=== PATIENT | male | born 1945 | race African-American/Black ===

== ENCOUNTER 2021-04-19 18:56 | Inpatient (IN) | payer MEDICARE, MEDICAID ==
[2021-04-19] VITALS (8 sets, daily range): BP systolic 103–167; BP diastolic 31–54
[~2021-04-19] VITALS: Ht 172.7 cm; Wt 65.5 kg
[2021-04-19] MEDS ORDERED: NICARDIPINE 40MG/200ML PREMIX 200 ML IV PRN (20:45)
[2021-04-19] MEDS ORDERED: HEPARIN 25,000 UNITS PREMIX 250 ML IV SCH (20:45)
[2021-04-19] MEDS ORDERED: ALPRAZOLAM 0.25 MG TABLET PO PRN (21:00)
[2021-04-19] MEDS ORDERED: LABETALOL HCL 200MG TABLET PO SCH (21:00)
[2021-04-19 21:43] LABS: BASOPHILS % 0.3 % (0.0-2.0); EOSINOPHILS % 1.9 % (0.0-5.0); HEMATOCRIT. 28.5 % (42.0-52.0); HEMOGLOBIN. 9.3 g/dL (14.0-18.0); INR 1.1; LYMPHOCYTES % 9.7 % (20.0-50.0); MEAN CORPUSCULAR HEMOGLOBIN 27.1 pg (28.0-32.0); MEAN CORPUSCULAR VOLUME 82.9 fL (80.0-94.0); MEAN PLATELET VOLUME 8.6 fl (7.4-10.4); MONOCYTES % 12.1 % (2.0-8.0); PARTIAL THROMBOPLASTIN TIME 29.4 sec (23.4-31.0); PLATELET 264 x1000/uL (130-400); PROTHROMBIN TIME 11.4 sec (9.6-11.0); RED BLOOD CELL COUNT 3.44 mill/uL (4.7-6.1); RED CELL DISTRIBUTION WIDTH 17.4 % (11.6-14.6)
[2021-04-19] MEDS: ATORVASTATIN CALCIUM 40MG TABLET PO SCH (21:45)
[2021-04-19 21:53] LABS: CHLORIDE 110 mEq/L (98-107)
[2021-04-19] MEDS ORDERED: HEPARIN BOLUS PRN aPTT <30 IV (22:15)
[2021-04-19] MEDS ORDERED: HEPARIN BOLUS PRN aPTT 30-44 IV (22:15)
[2021-04-19] MEDS ORDERED: HEPARIN 60 UNITS/KG BOLUS IV NR (22:15)
[2021-04-19] MEDS: HEPARIN 25,000 UNITS PREMIX 250 ML IV SCH (23:50)
[2021-04-20] VITALS (101 sets, daily range): BP systolic 96–203; BP diastolic 19–68
[2021-04-20] MEDS: HEPARIN 25,000 UNITS PREMIX 250 ML IV SCH (04:55)
[2021-04-20 07:12] LABS: BASOPHILS % 0.2 % (0.0-2.0); EOSINOPHILS % 3.1 % (0.0-5.0); HEMOGLOBIN. 9.3 g/dL (14.0-18.0); LYMPHOCYTES % 10.5 % (20.0-50.0); MEAN CORPUSCULAR HEMOGLOBIN 26.8 pg (28.0-32.0); MEAN CORPUSCULAR VOLUME 83.8 fL (80.0-94.0); MEAN PLATELET VOLUME 9.7 fl (7.4-10.4); MONOCYTES % 13.2 % (2.0-8.0); PLATELET 244 x1000/uL (130-400); RED BLOOD CELL COUNT 3.46 mill/uL (4.7-6.1); RED CELL DISTRIBUTION WIDTH 17.8 % (11.6-14.6)
[2021-04-20 07:30] LABS: CHLORIDE 111 mEq/L (98-107)
[2021-04-20 07:37] LABS: LDL CHOLESTEROL 40 mg/dL (5-100)
[2021-04-20 07:39] LABS: HDL CHOLESTEROL 67 mg/dL (40-59)
[2021-04-20] MEDS: PANTOPRAZOLE SODIUM 40 MG/VIAL IV SCH (08:29)
[2021-04-20] MEDS: ASPIRIN 81MG TABLET PO SCH (08:29)
[2021-04-20] MEDS ORDERED: NIFEDIPINE XL 30MG TAB PO SCH (09:00)
[2021-04-20] MEDS ORDERED: HEPARIN 25,000 UNITS PREMIX 250 ML IV SCH (09:45)
[2021-04-20] MEDS ORDERED: FAMO20TA8 MT (09:51)
[2021-04-20] MEDS ORDERED: HYDR-4135 MT (09:51)
[2021-04-20] MEDS ORDERED: POTA20TA82 MT (09:51)
[2021-04-20] MEDS ORDERED: IPRA3AMP31 IH (09:51)
[2021-04-20] MEDS ORDERED: ISOS20TA8 MT (09:51)
[2021-04-20] MEDS ORDERED: FURO40TA5 MT (09:51)
[2021-04-20] MEDS ORDERED: IPRATROPIUM/ALBUTEROL 0.5-3(2.5)MG/3ML NEB HHN PRN (14:30)
[2021-04-20] MEDS: HYDRALAZINE HCL 25MG TABLET PO SCH ×2 (15:05→21:53)
[2021-04-20] MEDS: NICARDIPINE 50 MG in SODIUM CHLORIDE 0.9% 230 ML IV PRN ×2 (17:00→21:53)
[2021-04-20] MEDS ORDERED: FUROSEMIDE 100MG/10ML VIAL IVP NR (17:15)
[2021-04-20] MEDS ORDERED: EPOETIN ALFA-EPBX 10,000 UNIT/ML VIAL SUBCUT NR (17:30)
[2021-04-20] MEDS: ALLOPURINOL 300 MG TABLET PO SCH (20:47)
[2021-04-20] MEDS: ATORVASTATIN CALCIUM 40MG TABLET PO SCH (20:47)
[2021-04-20] MEDS ORDERED: CHLORHEXIDINE GLUCONATE 4% EXTERNAL USE TOP SCH (21:00)
[2021-04-20] MEDS ORDERED: BISACODYL 10MG SUPP PR PRN (21:00)
[2021-04-20] MEDS ORDERED: ASCORBIC ACID 500 MG TABLET PO SCH (21:00)
[2021-04-20] MEDS ORDERED: DOCUSATE SODIUM 100MG CAPSULE PO SCH (21:00)
[2021-04-20] MEDS ORDERED: DIPHENHYDRAMINE 25MG CAPSULE PO PRN (21:00)
[2021-04-21] VITALS (102 sets, daily range): BP systolic 0–201; BP diastolic 0–78
[2021-04-21] MEDS ORDERED: FUROSEMIDE 40MG/4ML VIAL IVP SCH (01:00)
[2021-04-21] MEDS: NICARDIPINE 50 MG in SODIUM CHLORIDE 0.9% 230 ML IV PRN ×3 (02:45→15:25)
[2021-04-21] MEDS: ALLOPURINOL 300 MG TABLET PO SCH (05:30)
[2021-04-21] MEDS ORDERED: SKIN ADHESIVE 0.7 GM EA TOP ONE (05:32)
[2021-04-21] MEDS ORDERED: THROMBIN (BOVINE) 5000 UNITS/VIAL TOP ONE (05:32)
[2021-04-21] MEDS ORDERED: POLYMYXIN B SULFATE 500000 UNITS/VIAL ONE (05:32)
[2021-04-21] MEDS ORDERED: DOPAMINE 400MG/250ML PREMIX 250 ML IV ONE (05:33)
[2021-04-21] MEDS ORDERED: HEPARIN 1000 UNITS/ML 10ML ONE ×2 (05:36→09:04)
[2021-04-21] MEDS ORDERED: PAPAVERINE HCL 180MG in SODIUM CHLORIDE 0.9% 24ML IV SCH (06:00)
[2021-04-21] MEDS ORDERED: EPINEPHRINE 5 MG in DEXT 5% WATER 245 ML IV SCH ×2 (06:00→11:30)
[2021-04-21] MEDS ORDERED: NOREPINEPHRINE 8 MG in DEXT 5% WATER 242 ML IV SCH (06:00)
[2021-04-21] MEDS: HYDRALAZINE HCL 25MG TABLET PO SCH (06:00)
[2021-04-21] MEDS ORDERED: NICARDIPINE 50 MG in NS 230 ML IV SCH (06:00)
[2021-04-21] MEDS ORDERED: INSULIN REGULAR (DRIP) 100 UNITS in SODIUM CHLORIDE 0.9% 99 ML IV SCH (06:00)
[2021-04-21] MEDS ORDERED: DEL NIDO ELECTROLYTE-S(PH 7.4) 1,000 ML IV SCH ×2 (06:00)
[2021-04-21] MEDS ORDERED: AMINOCAPROIC ACID 5,000 MG in SODIUM CHLORIDE 0.9% 230 ML IV SCH (06:00)
[2021-04-21] MEDS ORDERED: CEFAZOLIN 2,000 MG in DEXT 5% WATER 100 ML IV SCH (06:00)
[2021-04-21] MEDS ORDERED: ROCURONIUM BROMIDE 10MG/ML VIAL 5ML IV ONE (07:09)
[2021-04-21] MEDS ORDERED: AMIODARONE HCL 900 MG in DEXT 5% WATER 500 ML IV PRN (07:15)
[2021-04-21] MEDS ORDERED: FENTANYL CITRATE/PF 50MCG/ML 2ML VIAL ONE (07:40)
[2021-04-21] MEDS ORDERED: DEXTROSE 50% WATER 50ML SYRINGE IV PRN ×2 (08:45)
[2021-04-21] MEDS ORDERED: DEXAMETHASONE 4MG/ML 1ML VIAL ONE (08:46)
[2021-04-21] MEDS ORDERED: FUROSEMIDE 100MG/10ML VIAL ONE (08:46)
[2021-04-21] MEDS ORDERED: AMIODARONE HCL 50MG/ML 3ML VIAL IV ONE (08:46)
[2021-04-21] MEDS ORDERED: CALCIUM CHLORIDE 1GM/10ML SYR IV ONE ×2 (08:46→10:36)
[2021-04-21] MEDS ORDERED: CHLORHEXIDINE GLUCONATE 4% EXTERNAL USE TOP SCH (09:00)
[2021-04-21] MEDS: PANTOPRAZOLE SODIUM 40 MG/VIAL IV SCH (09:00)
[2021-04-21] MEDS: ASPIRIN 81MG TABLET PO SCH (09:00)
[2021-04-21] MEDS ORDERED: PROTAMINE SULFATE 10MG/ML VIAL 25ML IV ONE (10:37)
[2021-04-21] MEDS: BLOOD SUGAR DIAGNOSTIC STRIP TEST SCH ×13 (11:00→23:17)
[2021-04-21] MEDS ORDERED: KCL 10MEQ/50ML PREMIX 200 ML IV PRN (11:00)
[2021-04-21] MEDS ORDERED: KCL 10MEQ/50ML PREMIX 150 ML IV PRN (11:00)
[2021-04-21] MEDS ORDERED: KETOROLAC 30MG/ML VIAL ONE (11:04)
[2021-04-21] MEDS ORDERED: NEOSTIGMINE METHYLSULFATE 1MG/ML 10 ML VIAL ONE (11:11)
[2021-04-21] MEDS ORDERED: GLYCOPYRROLATE 0.2 MG/ML 2ML VIAL ONE (11:11)
[2021-04-21] MEDS ORDERED: DEXMEDETOMIDINE 400 MCG/100 ML 100 ML IV ONE (11:12)
[2021-04-21] MEDS ORDERED: MORPHINE SULFATE 2 MG/ML CPJ (NOT FOR IM USE) IV PRN (11:30)
[2021-04-21] MEDS: MAGNESIUM HYDROXIDE 400MG/5ML 30ML UDC PO SCH ×4 (11:30→23:39)
[2021-04-21] MEDS ORDERED: MAGNESIUM 1 G PREMIX 100 ML IV PRN (11:30)
[2021-04-21] MEDS ORDERED: OXYCODONE HCL/ACETAMINOPHEN 5/325MG TABLET PO PRN ×2 (11:30)
[2021-04-21] MEDS ORDERED: ALBUMIN HUMAN 12.5G/250ML (5%) IV PRN (11:30)
[2021-04-21] MEDS ORDERED: ALBUMIN HUMAN 25GM/100ML (25%) IV PRN (11:30)
[2021-04-21] MEDS ORDERED: CALCIUM CHLORIDE 5,000 MG in DEXT 5% WATER 500 ML IV PRN (11:30)
[2021-04-21] MEDS ORDERED: ACETAMINOPHEN 325MG TABLET PO PRN (11:30)
[2021-04-21] MEDS ORDERED: MAGNESIUM 2 G PREMIX 50 ML IV PRN (11:30)
[2021-04-21] MEDS ORDERED: MAGNESIUM SULFATE 3 GM in DEXT 5% WATER 100 ML IV PRN (11:30)
[2021-04-21] MEDS ORDERED: CALCIUM CHLORIDE 3,000 MG in DEXT 5% WATER 250 ML IV PRN (11:30)
[2021-04-21] MEDS ORDERED: ALBUTEROL 90MCG/PUFF 17GM INHALER INH ONE (11:37)
[2021-04-21] MEDS: INSULIN REGULAR (DRIP) 100 UNITS in SODIUM CHLORIDE 0.9% 100 ML IV SCH (11:43)
[2021-04-21] MEDS ORDERED: NALOXONE HCL 0.4MG/ML VIAL IV PRN (11:45)
[2021-04-21 12:02] LABS: BG BASE EXCESS -4.3 mmol/L (-2.0-2.0); BG CARBOXYHEMOGLOBIN 0.4 % (0.5-1.5); BG DEOXYHEMOGLOBIN 11.6 % (0.0-5.0); BG HCO3 ACT 19.9 mmol/L (22.0-26.0); BG METHEMOGLOBIN 0.1 % (0.0-1.5); BG OXYGEN SATURATION 88.3 % (92.0-98.5); BG OXYHEMOGLOBIN 87.9 % (94.0-97.0); BG PCO2 33.5 mmHg (35.0-45.0); BG PH 7.392 (7.350-7.450); BG PO2 57.3 mmHg (75.0-100.0); BG SAMPLE SITE ALINE; BG TOTAL HEMOGLOBIN 11.1 g/dL (12.0-18.0); BG VENT MODE MASK - NRB
[2021-04-21 12:10] LABS: HEMATOCRIT. 29.4 % (42.0-52.0); HEMOGLOBIN. 9.4 g/dL (14.0-18.0); MEAN CORPUSCULAR VOLUME 84.9 fL (80.0-94.0); MEAN PLATELET VOLUME 8.6 fl (7.4-10.4); PLATELET 250 x1000/uL (130-400); RED BLOOD CELL COUNT 3.47 mill/uL (4.7-6.1); RED CELL DISTRIBUTION WIDTH 17.5 % (11.6-14.6)
[2021-04-21] MEDS ORDERED: SODIUM BICARBONATE 8.4% 1 MEQ/ML 50ML SYR IV SCH (12:15)
[2021-04-21] MEDS ORDERED: BUMETANIDE 1MG/4ML VIAL IV SCH (12:15)
[2021-04-21 12:18] LABS: PROTHROMBIN TIME 11.2 sec (9.6-11.0)
[2021-04-21 12:26] LABS: CHLORIDE 110 mEq/L (98-107)
[2021-04-21 12:39] LABS: PHOSPHORUS 2.9 mg/dL (2.5-4.9)
[2021-04-21] MEDS: CEFAZOLIN 1000MG PREMIX 50 ML IV SCH ×2 (12:40→20:50)
[2021-04-21] MEDS ORDERED: CEFAZOLIN 1000MG PREMIX 50 ML IV SCH (13:00)
[2021-04-21] MEDS: DEXT 5%/0.45% NACL 1000ML 1,000 ML IV SCH (13:02)
[2021-04-21 13:37] LABS: NUCLEATED RED BLOOD CELLS 1 /100 WBC; PLATELET ESTIMATE NORMAL
[2021-04-21] MEDS: KETOROLAC 30MG/ML VIAL IV PRN ×2 (13:37→19:51)
[2021-04-21] MEDS ORDERED: HEPARIN 10,000 UNITS/ML VIAL ONE (13:51)
[2021-04-21] MEDS ORDERED: POTASSIUM CHLORIDE 40MEQ/20ML INJ IV ONE (13:51)
[2021-04-21] MEDS ORDERED: ALBUMIN HUMAN 25GM/100ML (25%) IV ONE (13:51)
[2021-04-21] MEDS ORDERED: MAGNESIUM SULFATE 5GM/10ML VIAL IV ONE (13:51)
[2021-04-21] MEDS: IPRATROPIUM/ALBUTEROL 0.5-3(2.5)MG/3ML NEB HHN SCH ×2 (15:41→20:32)
[2021-04-21] MEDS: DOCUSATE SODIUM 100MG CAPSULE PO SCH (16:22)
[2021-04-21] MEDS: CLOPIDOGREL 75MG TABLET PO SCH (16:22)
[2021-04-21] MEDS: BACITRACIN 15GM TUBE TOP SCH (17:00)
[2021-04-21 17:14] LABS: BG BASE EXCESS 1.9 mmol/L (-2.0-2.0); BG CARBOXYHEMOGLOBIN 0.1 % (0.5-1.5); BG DEOXYHEMOGLOBIN 5.7 % (0.0-5.0); BG HCO3 ACT 25.8 mmol/L (22.0-26.0); BG METHEMOGLOBIN 0.1 % (0.0-1.5); BG OXYGEN SATURATION 94.3 % (92.0-98.5); BG OXYHEMOGLOBIN 94.1 % (94.0-97.0); BG PCO2 37.3 mmHg (35.0-45.0); BG PH 7.457 (7.350-7.450); BG PO2 73.3 mmHg (75.0-100.0); BG SAMPLE SITE ALINE; BG TOTAL HEMOGLOBIN 10.6 g/dL (12.0-18.0); BG VENT MODE MASK - NRB
[2021-04-21 17:22] LABS: HEMATOCRIT. 29.6 % (42.0-52.0); HEMOGLOBIN. 9.3 g/dL (14.0-18.0); MEAN CORPUSCULAR HEMOGLOBIN 26.5 pg (28.0-32.0); MEAN CORPUSCULAR VOLUME 83.7 fL (80.0-94.0); MEAN PLATELET VOLUME 8.5 fl (7.4-10.4); PLATELET 254 x1000/uL (130-400); RED BLOOD CELL COUNT 3.53 mill/uL (4.7-6.1); RED CELL DISTRIBUTION WIDTH 17.6 % (11.6-14.6)
[2021-04-21] MEDS: ONDANSETRON HCL 4MG/2ML INJ IV PRN (17:22)
[2021-04-21 17:28] LABS: CHLORIDE 109 mEq/L (98-107)
[2021-04-21] MEDS ORDERED: FUROSEMIDE 100MG/10ML VIAL IVP SCH (18:00)
[2021-04-21 18:41] LABS: PLATELET ESTIMATE NORMAL
[2021-04-21] MEDS: ATORVASTATIN CALCIUM 40MG TABLET PO SCH (20:49)
[2021-04-21] MEDS: METOPROLOL TARTRATE 25MG TABLET PO SCH (20:50)
[2021-04-21] MEDS: MORPHINE SULFATE 2 MG/ML CPJ (NOT FOR IM USE) IV PRN (21:39)
[2021-04-22] VITALS (116 sets, daily range): BP systolic 77–242; BP diastolic 28–128
[2021-04-22] MEDS: BLOOD SUGAR DIAGNOSTIC STRIP TEST SCH ×24 (00:01→23:51)
[2021-04-22] MEDS: IPRATROPIUM/ALBUTEROL 0.5-3(2.5)MG/3ML NEB HHN SCH ×6 (00:39→21:02)
[2021-04-22] MEDS: MORPHINE SULFATE 2 MG/ML CPJ (NOT FOR IM USE) IV PRN ×4 (02:57→23:51)
[2021-04-22] MEDS: CEFAZOLIN 1000MG PREMIX 50 ML IV SCH (04:24)
[2021-04-22] MEDS: MAGNESIUM HYDROXIDE 400MG/5ML 30ML UDC PO SCH ×3 (04:24→11:40)
[2021-04-22] MEDS: INSULIN REGULAR (DRIP) 100 UNITS in SODIUM CHLORIDE 0.9% 100 ML IV SCH (04:25)
[2021-04-22] MEDS ORDERED: FUROSEMIDE 100MG/10ML VIAL IVP SCH ×2 (05:15→12:00)
[2021-04-22 05:58] LABS: CHLORIDE 102 mEq/L (98-107)
[2021-04-22 06:04] LABS: HEMATOCRIT. 27.7 % (42.0-52.0); HEMOGLOBIN. 8.8 g/dL (14.0-18.0); MEAN CORPUSCULAR HEMOGLOBIN 26.6 pg (28.0-32.0); MEAN CORPUSCULAR VOLUME 83.5 fL (80.0-94.0); PLATELET 241 x1000/uL (130-400); RED BLOOD CELL COUNT 3.32 mill/uL (4.7-6.1); RED CELL DISTRIBUTION WIDTH 17.9 % (11.6-14.6)
[2021-04-22 07:29] LABS: PHOSPHORUS 3.3 mg/dL (2.5-4.9)
[2021-04-22 07:45] LABS: PLATELET ESTIMATE NORMAL
[2021-04-22] MEDS: PANTOPRAZOLE SODIUM 40 MG/VIAL IV SCH (09:12)
[2021-04-22] MEDS: ASPIRIN 81MG TABLET PO SCH (09:12)
[2021-04-22] MEDS: BACITRACIN 15GM TUBE TOP SCH ×2 (09:12→17:08)
[2021-04-22] MEDS: CLOPIDOGREL 75MG TABLET PO SCH (09:13)
[2021-04-22] MEDS: DOCUSATE SODIUM 100MG CAPSULE PO SCH ×2 (09:13→17:07)
[2021-04-22] MEDS: METOPROLOL TARTRATE 25MG TABLET PO SCH ×2 (09:13→20:58)
[2021-04-22] MEDS: ACETAMINOPHEN 325MG TABLET PO PRN (10:22)
[2021-04-22 11:41] LABS: BG BASE EXCESS 3.2 mmol/L (-2.0-2.0); BG CARBOXYHEMOGLOBIN 0.3 % (0.5-1.5); BG DEOXYHEMOGLOBIN 10.8 % (0.0-5.0); BG FRACTION INSPIRED OXYGEN 100; BG HCO3 ACT 26.1 mmol/L (22.0-26.0); BG METHEMOGLOBIN 0.3 % (0.0-1.5); BG OXYGEN SATURATION 89.1 % (92.0-98.5); BG OXYHEMOGLOBIN 88.6 % (94.0-97.0); BG PCO2 33.7 mmHg (35.0-45.0); BG PH 7.507 (7.350-7.450); BG PO2 56.1 mmHg (75.0-100.0); BG SAMPLE SITE ALINE; BG TOTAL HEMOGLOBIN 10.1 g/dL (12.0-18.0); BG VENT MODE MASK - NRB
[2021-04-22] MEDS: DOPAMINE 400MG/250ML PREMIX 250 ML IV SCH (12:00)
[2021-04-22] MEDS: ALBUMIN HUMAN 25GM/100ML (25%) IV SCH ×3 (12:10→17:07)
[2021-04-22] MEDS: DEXT 5%/0.45% NACL 1000ML 1,000 ML IV SCH (13:48)
[2021-04-22] MEDS: ONDANSETRON HCL 4MG/2ML INJ IV PRN (14:14)
[2021-04-22] MEDS: KETOROLAC 30MG/ML VIAL IV PRN (17:07)
[2021-04-22] MEDS ORDERED: BUMETANIDE 1MG/4ML VIAL IV NR (17:36)
[2021-04-22] MEDS: ATORVASTATIN CALCIUM 40MG TABLET PO SCH (20:57)
[2021-04-23] VITALS (121 sets, daily range): BP systolic 11–275; BP diastolic 27–176
[2021-04-23] MEDS: IPRATROPIUM/ALBUTEROL 0.5-3(2.5)MG/3ML NEB HHN SCH ×6 (00:36→20:30)
[2021-04-23] MEDS: BLOOD SUGAR DIAGNOSTIC STRIP TEST SCH ×15 (01:07→21:26)
[2021-04-23 02:41] LABS: BG BASE EXCESS 2.5 mmol/L (-2.0-2.0); BG DEOXYHEMOGLOBIN 28.2 % (0.0-5.0); BG FRACTION INSPIRED OXYGEN 100; BG HCO3 ACT 26.1 mmol/L (22.0-26.0); BG METHEMOGLOBIN 0.2 % (0.0-1.5); BG OXYGEN SATURATION 71.7 % (92.0-98.5); BG OXYHEMOGLOBIN 71.6 % (94.0-97.0); BG PH 7.479 (7.350-7.450); BG PO2 38.1 mmHg (75.0-100.0); BG SAMPLE SITE ALINE; BG TOTAL HEMOGLOBIN 7.6 g/dL (12.0-18.0); BG VENT MODE MASK - NRB
[2021-04-23 04:05] LABS: BG CARBOXYHEMOGLOBIN 0.4 % (0.5-1.5); BG DEOXYHEMOGLOBIN 8.2 % (0.0-5.0); BG FRACTION INSPIRED OXYGEN 100; BG HCO3 ACT 25.9 mmol/L (22.0-26.0); BG METHEMOGLOBIN 0.1 % (0.0-1.5); BG OXYGEN SATURATION 91.8 % (92.0-98.5); BG OXYHEMOGLOBIN 91.3 % (94.0-97.0); BG PCO2 37.4 mmHg (35.0-45.0); BG PH 7.459 (7.350-7.450); BG PO2 67.4 mmHg (75.0-100.0); BG SAMPLE SITE ALINE; BG TOTAL HEMOGLOBIN 7.9 g/dL (12.0-18.0)
[2021-04-23 04:49] LABS: HEMOGLOBIN. 7.1 g/dL (14.0-18.0); MEAN CORPUSCULAR HEMOGLOBIN 27.2 pg (28.0-32.0); MEAN CORPUSCULAR VOLUME 84.5 fL (80.0-94.0); MEAN PLATELET VOLUME 8.9 fl (7.4-10.4); PLATELET 180 x1000/uL (130-400); RED BLOOD CELL COUNT 2.61 mill/uL (4.7-6.1)
[2021-04-23 04:52] LABS: CHLORIDE 101 mEq/L (98-107)
[2021-04-23] MEDS ORDERED: AMIODARONE HCL 150 MG in DEXT 5% WATER 100 ML IV SCH (07:00)
[2021-04-23] MEDS: AMIODARONE HCL 900 MG in DEXT 5% WATER 482 ML IV SCH (07:39)
[2021-04-23] MEDS: CLOPIDOGREL 75MG TABLET PO SCH (09:27)
[2021-04-23] MEDS: PANTOPRAZOLE SODIUM 40 MG/VIAL IV SCH (09:27)
[2021-04-23] MEDS: DOCUSATE SODIUM 100MG CAPSULE PO SCH ×2 (09:27→16:58)
[2021-04-23] MEDS: ASPIRIN 81MG TABLET PO SCH (09:27)
[2021-04-23] MEDS ORDERED: BUMETANIDE 1MG/4ML VIAL IV SCH (09:30)
[2021-04-23] MEDS: METOPROLOL TARTRATE 25MG TABLET PO SCH ×2 (09:39→21:26)
[2021-04-23] MEDS: BACITRACIN 15GM TUBE TOP SCH ×2 (09:39→16:58)
[2021-04-23] MEDS: DOPAMINE 400MG/250ML PREMIX 250 ML IV SCH (12:00)
[2021-04-23] MEDS ORDERED: DEXTROSE 50% WATER 50ML SYRINGE IV PRN (12:15)
[2021-04-23] MEDS: INSULIN LISPRO 100 UNITS/ML SUBCUT SCH ×3 (12:24→21:29)
[2021-04-23] MEDS: DEXT 5%/0.45% NACL 1000ML 1,000 ML IV SCH (12:29)
[2021-04-23] MEDS: ACETAMINOPHEN 325MG TABLET PO PRN ×2 (13:06→16:58)
[2021-04-23 14:30] LABS: PLATELET ESTIMATE NORMAL
[2021-04-23] MEDS: PIPERACILLIN/TAZOBACTAM 3.375 G in DEXTROSE 5% WATER 50 ML IV SCH ×2 (14:58→23:18)
[2021-04-23] MEDS ORDERED: BUMETANIDE 2.5MG/10ML VIAL IV NR (17:33)
[2021-04-23] MEDS ORDERED: AMIODARONE HCL 50MG/ML 3ML VIAL IV ONE (17:45)
[2021-04-23] MEDS ORDERED: AMIODARONE HCL 150 MG in DEXT 5% WATER 100 ML IV NR (17:45)
[2021-04-23 17:59] LABS: HEMATOCRIT 27.3 % (42.0-52.0)
[2021-04-23] MEDS ORDERED: FUROSEMIDE 100 MG in SODIUM CHLORIDE 0.9% 90 ML IV SCH (18:00)
[2021-04-23] MEDS ORDERED: METHYLPHENIDATE HCL 5MG TABLET PO NR (18:00)
[2021-04-23 18:12] LABS: PROTHROMBIN TIME 10.8 sec (9.6-11.0)
[2021-04-23] MEDS: FUROSEMIDE 100 MG in SODIUM CHLORIDE 0.9% 90 ML IV SCH (18:25)
[2021-04-23] MEDS: ATORVASTATIN CALCIUM 40MG TABLET PO SCH (21:26)
[2021-04-24] VITALS (95 sets, daily range): BP systolic 64–265; BP diastolic 15–91
[2021-04-24] MEDS: IPRATROPIUM/ALBUTEROL 0.5-3(2.5)MG/3ML NEB HHN SCH ×6 (00:25→20:53)
[2021-04-24] MEDS: ACETAMINOPHEN 325MG TABLET PO PRN ×3 (03:24→21:24)
[2021-04-24] MEDS: FUROSEMIDE 100 MG in SODIUM CHLORIDE 0.9% 90 ML IV SCH ×2 (04:28→16:48)
[2021-04-24] MEDS: PIPERACILLIN/TAZOBACTAM 3.375 G in DEXTROSE 5% WATER 50 ML IV SCH ×3 (06:31→21:48)
[2021-04-24 06:40] LABS: HEMATOCRIT. 29.3 % (42.0-52.0); HEMOGLOBIN. 9.4 g/dL (14.0-18.0); MEAN CORPUSCULAR HEMOGLOBIN 27.5 pg (28.0-32.0); MEAN CORPUSCULAR VOLUME 85.7 fL (80.0-94.0); RED BLOOD CELL COUNT 3.42 mill/uL (4.7-6.1); RED CELL DISTRIBUTION WIDTH 18.5 % (11.6-14.6)
[2021-04-24 06:48] LABS: CHLORIDE 100 mEq/L (98-107)
[2021-04-24] MEDS: BLOOD SUGAR DIAGNOSTIC STRIP TEST SCH ×4 (08:11→21:03)
[2021-04-24] MEDS: INSULIN LISPRO 100 UNITS/ML SUBCUT SCH ×5 (08:20→21:40)
[2021-04-24] MEDS: ASPIRIN 81MG TABLET PO SCH (08:44)
[2021-04-24] MEDS: CLOPIDOGREL 75MG TABLET PO SCH (08:44)
[2021-04-24] MEDS: PANTOPRAZOLE SODIUM 40 MG/VIAL IV SCH (08:44)
[2021-04-24] MEDS: DOCUSATE SODIUM 100MG CAPSULE PO SCH ×2 (08:44→16:50)
[2021-04-24] MEDS: METOPROLOL TARTRATE 25MG TABLET PO SCH ×2 (08:44→21:00)
[2021-04-24] MEDS: BACITRACIN 15GM TUBE TOP SCH ×2 (08:45→16:51)
[2021-04-24 09:29] LABS: BG CARBOXYHEMOGLOBIN 0.3 % (0.5-1.5); BG DEOXYHEMOGLOBIN 10.7 % (0.0-5.0); BG FRACTION INSPIRED OXYGEN 100; BG HCO3 ACT 24.4 mmol/L (22.0-26.0); BG OXYGEN SATURATION 89.3 % (92.0-98.5); BG PH 7.473 (7.350-7.450); BG PO2 56.2 mmHg (75.0-100.0); BG TOTAL HEMOGLOBIN 10.3 g/dL (12.0-18.0); BG VENT MODE HIGH FLOW
[2021-04-24 09:30] LABS: PLATELET ESTIMATE NORMAL
[2021-04-24 09:31] LABS: MEAN PLATELET VOLUME 9.7 fl (7.4-10.4); PLATELET 234 x1000/uL (130-400)
[2021-04-24] MEDS: MAGNESIUM 2 G PREMIX 50 ML IV PRN (11:01)
[2021-04-24] MEDS ORDERED: SODIUM CHLORIDE 3% FOR INH 15ML VIAL NEB INH NR (13:30)
[2021-04-24] MEDS: LACTULOSE 20G/30ML UDC PO SCH ×2 (14:58→21:48)
[2021-04-24] MEDS: MINERAL OIL 30ML BOTTLE PO SCH ×2 (14:59→18:11)
[2021-04-24] MEDS ORDERED: MAGNESIUM 2 G PREMIX 50 ML IV NR (15:00)
[2021-04-24] MEDS: DEXT 5%/0.45% NACL 1000ML 1,000 ML IV SCH (15:20)
[2021-04-24] MEDS: METHYLPHENIDATE HCL 5MG TABLET PO SCH (16:50)
[2021-04-24] MEDS: ONDANSETRON HCL 4MG/2ML INJ IV PRN (17:20)
[2021-04-24] MEDS ORDERED: AMIODARONE HCL 50MG/ML 9ML VIAL IV ONE (18:45)
[2021-04-24] MEDS: DOPAMINE 400MG/250ML PREMIX 250 ML IV SCH (19:03)
[2021-04-24] MEDS ORDERED: AMIODARONE HCL 150 MG in DEXT 5% WATER 100 ML IV NR (20:00)
[2021-04-24] MEDS: AMIODARONE HCL 900 MG in DEXT 5% WATER 482 ML IV SCH (21:06)
[2021-04-24] MEDS: ATORVASTATIN CALCIUM 40MG TABLET PO SCH (21:20)
[2021-04-25] VITALS (94 sets, daily range): BP systolic -7–247; BP diastolic -7–101
[2021-04-25] MEDS: IPRATROPIUM/ALBUTEROL 0.5-3(2.5)MG/3ML NEB HHN SCH ×6 (00:44→21:34)
[2021-04-25] MEDS: FUROSEMIDE 100 MG in SODIUM CHLORIDE 0.9% 90 ML IV SCH ×3 (02:22→20:29)
[2021-04-25 05:33] LABS: HEMOGLOBIN. 9.2 g/dL (14.0-18.0)
[2021-04-25 05:35] LABS: CHLORIDE 101 mEq/L (98-107)
[2021-04-25 05:47] LABS: HEMATOCRIT. 28.4 % (42.0-52.0); MEAN CORPUSCULAR HEMOGLOBIN 27.5 pg (28.0-32.0); MEAN CORPUSCULAR VOLUME 85.5 fL (80.0-94.0); MEAN PLATELET VOLUME 9.2 fl (7.4-10.4); PLATELET 222 x1000/uL (130-400); RED BLOOD CELL COUNT 3.33 mill/uL (4.7-6.1)
[2021-04-25] MEDS: LACTULOSE 20G/30ML UDC PO SCH ×3 (06:32→22:34)
[2021-04-25] MEDS: PIPERACILLIN/TAZOBACTAM 3.375 G in DEXTROSE 5% WATER 50 ML IV SCH ×3 (06:32→22:33)
[2021-04-25 07:52] LABS: PLATELET ESTIMATE NORMAL
[2021-04-25] MEDS: INSULIN LISPRO 100 UNITS/ML SUBCUT SCH ×4 (08:20→21:00)
[2021-04-25] MEDS: BLOOD SUGAR DIAGNOSTIC STRIP TEST SCH ×4 (08:46→20:50)
[2021-04-25] MEDS: ACETAMINOPHEN 325MG TABLET PO PRN ×2 (08:47→12:28)
[2021-04-25] MEDS: CLOPIDOGREL 75MG TABLET PO SCH (08:47)
[2021-04-25] MEDS: METHYLPHENIDATE HCL 5MG TABLET PO SCH ×2 (08:47→17:12)
[2021-04-25] MEDS: DOCUSATE SODIUM 100MG CAPSULE PO SCH ×2 (08:47→17:12)
[2021-04-25] MEDS: ASPIRIN 81MG TABLET PO SCH (08:47)
[2021-04-25] MEDS: PANTOPRAZOLE SODIUM 40 MG/VIAL IV SCH (08:47)
[2021-04-25] MEDS: METOPROLOL TARTRATE 25MG TABLET PO SCH ×2 (08:48→20:49)
[2021-04-25] MEDS: MINERAL OIL 30ML BOTTLE PO SCH ×2 (08:48→17:12)
[2021-04-25] MEDS: BACITRACIN 15GM TUBE TOP SCH ×2 (08:48→17:13)
[2021-04-25] MEDS ORDERED: AMIODARONE HCL 150 MG in DEXT 5% WATER 100 ML IV SCH (09:00)
[2021-04-25] MEDS ORDERED: LIDOCAINE HCL 1% 10 MG/ML 10ML VIAL ONE (09:24)
[2021-04-25] MEDS: KETOROLAC 30MG/ML VIAL IV PRN ×2 (10:01→23:46)
[2021-04-25] MEDS: DEXT 5%/0.45% NACL 1000ML 1,000 ML IV SCH (12:13)
[2021-04-25] MEDS: MAGNESIUM 2 G PREMIX 50 ML IV PRN (12:14)
[2021-04-25] MEDS: ATORVASTATIN CALCIUM 40MG TABLET PO SCH (20:49)
[2021-04-25] MEDS: KCL 10MEQ/50ML PREMIX 100 ML IV PRN (20:50)
[2021-04-26] VITALS (101 sets, daily range): BP systolic 103–168; BP diastolic 20–118
[2021-04-26] MEDS: IPRATROPIUM/ALBUTEROL 0.5-3(2.5)MG/3ML NEB HHN SCH ×6 (00:42→20:34)
[2021-04-26] MEDS: LACTULOSE 20G/30ML UDC PO SCH ×3 (05:41→22:04)
[2021-04-26] MEDS: ACETAMINOPHEN 325MG TABLET PO PRN ×2 (05:41→13:12)
[2021-04-26] MEDS: FUROSEMIDE 100 MG in SODIUM CHLORIDE 0.9% 90 ML IV SCH (05:42)
[2021-04-26 05:52] LABS: HEMOGLOBIN. 8.4 g/dL (14.0-18.0); MEAN CORPUSCULAR HEMOGLOBIN 27.4 pg (28.0-32.0); PLATELET 233 x1000/uL (130-400); RED BLOOD CELL COUNT 3.06 mill/uL (4.7-6.1); RED CELL DISTRIBUTION WIDTH 18.3 % (11.6-14.6)
[2021-04-26 05:57] LABS: CHLORIDE 104 mEq/L (98-107)
[2021-04-26] MEDS: PIPERACILLIN/TAZOBACTAM 3.375 G in DEXTROSE 5% WATER 50 ML IV SCH ×3 (06:29→22:04)
[2021-04-26] MEDS: KCL 10MEQ/50ML PREMIX 100 ML IV PRN ×2 (07:37→09:06)
[2021-04-26] MEDS: INSULIN LISPRO 100 UNITS/ML SUBCUT SCH ×4 (07:46→21:00)
[2021-04-26] MEDS: BLOOD SUGAR DIAGNOSTIC STRIP TEST SCH ×4 (07:46→21:08)
[2021-04-26] MEDS: ASPIRIN 81MG TABLET PO SCH (08:22)
[2021-04-26] MEDS: PANTOPRAZOLE SODIUM 40 MG/VIAL IV SCH (08:22)
[2021-04-26] MEDS: MAGNESIUM 2 G PREMIX 50 ML IV PRN (08:22)
[2021-04-26] MEDS: CLOPIDOGREL 75MG TABLET PO SCH (08:22)
[2021-04-26] MEDS: METHYLPHENIDATE HCL 5MG TABLET PO SCH ×2 (08:22→16:56)
[2021-04-26] MEDS: DOCUSATE SODIUM 100MG CAPSULE PO SCH (08:22)
[2021-04-26] MEDS: MINERAL OIL 30ML BOTTLE PO SCH ×2 (08:22→16:12)
[2021-04-26] MEDS: METOPROLOL TARTRATE 25MG TABLET PO SCH ×2 (08:22→21:08)
[2021-04-26] MEDS: BACITRACIN 15GM TUBE TOP SCH ×2 (08:23→16:57)
[2021-04-26 09:20] LABS: PLATELET ESTIMATE NORMAL
[2021-04-26] MEDS ORDERED: AMIODARONE HCL 150 MG in DEXT 5% WATER 100 ML IV ONE (12:00)
[2021-04-26] MEDS ORDERED: AMIODARONE HCL 50MG/ML 9ML VIAL IV ONE (12:00)
[2021-04-26] MEDS ORDERED: MAGNESIUM 2 G PREMIX 50 ML IV ONE (12:00)
[2021-04-26] MEDS ORDERED: AMIODARONE HCL 50MG/ML 3ML VIAL IV ONE (12:00)
[2021-04-26] MEDS ORDERED: AMIODARONE HCL 150 MG in DEXT 5% WATER 100 ML IV NR ×2 (12:30→20:00)
[2021-04-26] MEDS: TRAMADOL HCL/ACETAMINOPHEN 37.5/325MG TABLET PO PRN (13:02)
[2021-04-26] MEDS: DEXT 5%/0.45% NACL 1000ML 1,000 ML IV SCH (13:15)
[2021-04-26] MEDS: AMIODARONE HCL 900 MG in DEXT 5% WATER 482 ML IV PRN (13:45)
[2021-04-26] MEDS: DOCUSATE SODIUM 250MG CAPSULE PO SCH (16:12)
[2021-04-26] MEDS ORDERED: FUROSEMIDE 100MG/10ML VIAL IVP NR (17:00)
[2021-04-26] MEDS ORDERED: NALOXONE HCL 0.4MG/ML VIAL IV PRN (18:45)
[2021-04-26] MEDS: FAMOTIDINE 20MG TABLET PO SCH (21:08)
[2021-04-26] MEDS: ATORVASTATIN CALCIUM 40MG TABLET PO SCH (21:10)
[2021-04-27] VITALS (64 sets, daily range): BP systolic 96–176; BP diastolic 36–94
[2021-04-27] MEDS: ACETAMINOPHEN 325MG TABLET PO PRN ×2 (00:01→11:57)
[2021-04-27] MEDS: IPRATROPIUM/ALBUTEROL 0.5-3(2.5)MG/3ML NEB HHN SCH ×6 (00:51→20:29)
[2021-04-27] MEDS: OXYCODONE HCL/ACETAMINOPHEN 5/325MG TABLET PO PRN ×2 (03:22→17:45)
[2021-04-27] MEDS: LACTULOSE 20G/30ML UDC PO SCH (06:00)
[2021-04-27 06:06] LABS: HEMATOCRIT. 30.8 % (42.0-52.0); MEAN CORPUSCULAR HEMOGLOBIN 27.4 pg (28.0-32.0); MEAN CORPUSCULAR VOLUME 84.8 fL (80.0-94.0); MEAN PLATELET VOLUME 9.2 fl (7.4-10.4); PLATELET 228 x1000/uL (130-400); RED BLOOD CELL COUNT 3.64 mill/uL (4.7-6.1); RED CELL DISTRIBUTION WIDTH 18.4 % (11.6-14.6)
[2021-04-27] MEDS: PIPERACILLIN/TAZOBACTAM 3.375 G in DEXTROSE 5% WATER 50 ML IV SCH ×2 (06:16→13:50)
[2021-04-27 06:19] LABS: CHLORIDE 103 mEq/L (98-107)
[2021-04-27] MEDS: FUROSEMIDE 100MG/10ML VIAL IVP SCH (07:47)
[2021-04-27] MEDS: BLOOD SUGAR DIAGNOSTIC STRIP TEST SCH ×4 (07:47→21:15)
[2021-04-27] MEDS: PANTOPRAZOLE SODIUM 40 MG/VIAL IV SCH (07:47)
[2021-04-27] MEDS: FAMOTIDINE 20MG TABLET PO SCH ×2 (07:47→21:14)
[2021-04-27] MEDS: INSULIN LISPRO 100 UNITS/ML SUBCUT SCH ×4 (07:47→21:00)
[2021-04-27] MEDS: CLOPIDOGREL 75MG TABLET PO SCH (07:48)
[2021-04-27] MEDS: ASPIRIN 81MG TABLET PO SCH (07:48)
[2021-04-27] MEDS: DOCUSATE SODIUM 250MG CAPSULE PO SCH ×2 (07:48→17:44)
[2021-04-27] MEDS: METHYLPHENIDATE HCL 5MG TABLET PO SCH ×2 (07:48→17:45)
[2021-04-27] MEDS: METOPROLOL TARTRATE 25MG TABLET PO SCH ×2 (07:48→21:15)
[2021-04-27] MEDS: MINERAL OIL 30ML BOTTLE PO SCH ×2 (07:49→17:44)
[2021-04-27] MEDS: BACITRACIN 15GM TUBE TOP SCH ×2 (07:49→17:45)
[2021-04-27] MEDS: TRAMADOL HCL/ACETAMINOPHEN 37.5/325MG TABLET PO PRN (07:52)
[2021-04-27 11:02] LABS: PLATELET ESTIMATE NORMAL
[2021-04-27] MEDS ORDERED: AMIODARONE HCL 900 MG in DEXT 5% WATER 482 ML IV PRN (14:00)
[2021-04-27] MEDS ORDERED: LACTULOSE 20G/30ML UDC PO PRN (14:00)
[2021-04-27] MEDS ORDERED: AMIODARONE HCL 150 MG in DEXT 5% WATER 100 ML IV NR (15:00)
[2021-04-27] MEDS ORDERED: CEFTRIAXONE 1 G PREMIX 50 ML IV SCH (15:00)
[2021-04-27] MEDS: AMIODARONE HCL 900 MG in DEXT 5% WATER 482 ML IV PRN ×2 (17:04→23:13)
[2021-04-27 17:07] LABS: BG BASE EXCESS -0.1 mmol/L (-2.0-2.0); BG DEOXYHEMOGLOBIN 9.1 % (0.0-5.0); BG FRACTION INSPIRED OXYGEN 21; BG HCO3 ACT 21.8 mmol/L (22.0-26.0); BG METHEMOGLOBIN 0.1 % (0.0-1.5); BG OXYGEN SATURATION 90.8 % (92.0-98.5); BG OXYHEMOGLOBIN 89.8 % (94.0-97.0); BG PCO2 27.6 mmHg (35.0-45.0); BG PH 7.516 (7.350-7.450); BG PO2 63.8 mmHg (75.0-100.0); BG SAMPLE SITE LEFT RADIAL; BG TOTAL HEMOGLOBIN 12.1 g/dL (12.0-18.0); BG VENT MODE ROOM AIR
[2021-04-27] MEDS: CEFTRIAXONE 1,000 MG in DEXTROSE 5% WATER 50 ML IV SCH (17:48)
[2021-04-27] MEDS: ATORVASTATIN CALCIUM 40MG TABLET PO SCH (21:14)
[2021-04-28] VITALS (12 sets, daily range): BP systolic 126–167; BP diastolic 37–89
[2021-04-28] MEDS: IPRATROPIUM/ALBUTEROL 0.5-3(2.5)MG/3ML NEB HHN SCH ×5 (00:01→21:58)
[2021-04-28 03:38] LABS: BG BASE EXCESS -0.1 mmol/L (-2.0-2.0); BG CARBOXYHEMOGLOBIN 0.8 % (0.5-1.5); BG DEOXYHEMOGLOBIN 5.6 % (0.0-5.0); BG FRACTION INSPIRED OXYGEN 50; BG HCO3 ACT 21.5 mmol/L (22.0-26.0); BG METHEMOGLOBIN 0.3 % (0.0-1.5); BG OXYGEN SATURATION 94.3 % (92.0-98.5); BG OXYHEMOGLOBIN 93.3 % (94.0-97.0); BG PCO2 26.6 mmHg (35.0-45.0); BG PH 7.526 (7.350-7.450); BG PO2 68.5 mmHg (75.0-100.0); BG SAMPLE SITE RIGHT BRACHIAL; BG TOTAL HEMOGLOBIN 11.8 g/dL (12.0-18.0); BG VENT MODE MASK - VENTI
[2021-04-28] MEDS: OXYCODONE HCL/ACETAMINOPHEN 5/325MG TABLET PO PRN (03:44)
[2021-04-28] MEDS: BLOOD SUGAR DIAGNOSTIC STRIP TEST SCH ×4 (06:53→21:27)
[2021-04-28] MEDS: INSULIN LISPRO 100 UNITS/ML SUBCUT SCH ×4 (07:20→21:30)
[2021-04-28] MEDS: MINERAL OIL 30ML BOTTLE PO SCH ×2 (09:02→16:59)
[2021-04-28] MEDS: FUROSEMIDE 100MG/10ML VIAL IVP SCH (09:03)
[2021-04-28] MEDS: ASPIRIN 81MG TABLET PO SCH (09:05)
[2021-04-28] MEDS: BACITRACIN 15GM TUBE TOP SCH ×2 (09:06→17:11)
[2021-04-28] MEDS: METHYLPHENIDATE HCL 5MG TABLET PO SCH ×2 (09:06→16:59)
[2021-04-28] MEDS: METOPROLOL TARTRATE 25MG TABLET PO SCH ×2 (09:06→21:27)
[2021-04-28] MEDS: CLOPIDOGREL 75MG TABLET PO SCH (09:06)
[2021-04-28] MEDS: DOCUSATE SODIUM 250MG CAPSULE PO SCH ×2 (09:06→16:59)
[2021-04-28] MEDS: FAMOTIDINE 20MG TABLET PO SCH ×2 (09:06→21:27)
[2021-04-28] MEDS: PANTOPRAZOLE SODIUM 40 MG/VIAL IV SCH (09:07)
[2021-04-28 12:47] LABS: BG BASE EXCESS 2.2 mmol/L (-2.0-2.0); BG CARBOXYHEMOGLOBIN 0.4 % (0.5-1.5); BG DEOXYHEMOGLOBIN 2.2 % (0.0-5.0); BG HCO3 ACT 25.9 mmol/L (22.0-26.0); BG METHEMOGLOBIN 0.2 % (0.0-1.5); BG OXYGEN SATURATION 97.8 % (92.0-98.5); BG OXYHEMOGLOBIN 97.2 % (94.0-97.0); BG PCO2 37.4 mmHg (35.0-45.0); BG PH 7.459 (7.350-7.450); BG PO2 102.8 mmHg (75.0-100.0); BG SAMPLE SITE RIGHT BRACHIAL; BG TOTAL HEMOGLOBIN 11.9 g/dL (12.0-18.0); BG VENT MODE MASK - NRB
[2021-04-28] MEDS: CEFTRIAXONE 1,000 MG in DEXTROSE 5% WATER 50 ML IV SCH (15:24)
[2021-04-28] MEDS ORDERED: FUROSEMIDE 40MG/4ML VIAL IVP NR (16:30)
[2021-04-28] MEDS: AMIODARONE HCL 900 MG in DEXT 5% WATER 482 ML IV PRN (16:35)
[2021-04-28] MEDS ORDERED: DIGOXIN 500MCG/2ML AMP IV NR (16:45)
[2021-04-28] MEDS: METHYLPREDNISOLONE SOD SUCC 40 MG/ML VIAL IV SCH (16:59)
[2021-04-28] MEDS ORDERED: ZOLPIDEM TARTRATE 5MG TABLET PO PRN (21:00)
[2021-04-28] MEDS: ATORVASTATIN CALCIUM 40MG TABLET PO SCH (21:26)
[2021-04-28] MEDS: GUAIFENESIN 600MG ER TABLET PO SCH (21:26)
[2021-04-29] VITALS (12 sets, daily range): BP systolic 118–162; BP diastolic 53–83
[2021-04-29] MEDS: IPRATROPIUM/ALBUTEROL 0.5-3(2.5)MG/3ML NEB HHN SCH ×7 (01:56→21:34)
[2021-04-29] MEDS: OXYCODONE HCL/ACETAMINOPHEN 5/325MG TABLET PO PRN (04:47)
[2021-04-29] MEDS: BLOOD SUGAR DIAGNOSTIC STRIP TEST SCH ×4 (06:45→20:37)
[2021-04-29 07:01] LABS: CHLORIDE 109 mEq/L (98-107)
[2021-04-29 07:18] LABS: HEMOGLOBIN. 10.2 g/dL (14.0-18.0); MEAN CORPUSCULAR HEMOGLOBIN 27.7 pg (28.0-32.0); MEAN CORPUSCULAR VOLUME 86.7 fL (80.0-94.0); MEAN PLATELET VOLUME 9.6 fl (7.4-10.4); PLATELET 333 x1000/uL (130-400); RED BLOOD CELL COUNT 3.69 mill/uL (4.7-6.1); RED CELL DISTRIBUTION WIDTH 18.7 % (11.6-14.6)
[2021-04-29] MEDS: INSULIN LISPRO 100 UNITS/ML SUBCUT SCH ×4 (07:29→20:42)
[2021-04-29] MEDS: MINERAL OIL 30ML BOTTLE PO SCH ×2 (09:01→18:13)
[2021-04-29] MEDS: ASPIRIN 81MG TABLET PO SCH (09:01)
[2021-04-29] MEDS: METHYLPREDNISOLONE SOD SUCC 40 MG/ML VIAL IV SCH ×2 (09:01→20:42)
[2021-04-29] MEDS: PANTOPRAZOLE SODIUM 40 MG/VIAL IV SCH (09:01)
[2021-04-29] MEDS: FUROSEMIDE 100MG/10ML VIAL IVP SCH (09:01)
[2021-04-29] MEDS: FAMOTIDINE 20MG TABLET PO SCH ×2 (09:02→20:42)
[2021-04-29] MEDS: GUAIFENESIN 600MG ER TABLET PO SCH ×2 (09:02→20:43)
[2021-04-29] MEDS: METHYLPHENIDATE HCL 5MG TABLET PO SCH ×2 (09:02→18:14)
[2021-04-29] MEDS: CLOPIDOGREL 75MG TABLET PO SCH (09:02)
[2021-04-29] MEDS: METOPROLOL TARTRATE 25MG TABLET PO SCH ×2 (09:09→20:43)
[2021-04-29] MEDS: DOCUSATE SODIUM 250MG CAPSULE PO SCH ×2 (09:09→18:14)
[2021-04-29] MEDS: BACITRACIN 15GM TUBE TOP SCH ×2 (09:10→18:15)
[2021-04-29 10:06] LABS: BG BASE EXCESS 0.6 mmol/L (-2.0-2.0); BG CARBOXYHEMOGLOBIN 0.1 % (0.5-1.5); BG DEOXYHEMOGLOBIN 5.5 % (0.0-5.0); BG FRACTION INSPIRED OXYGEN 50; BG HCO3 ACT 23.2 mmol/L (22.0-26.0); BG METHEMOGLOBIN 0.3 % (0.0-1.5); BG OXYGEN SATURATION 94.5 % (92.0-98.5); BG OXYHEMOGLOBIN 94.1 % (94.0-97.0); BG PCO2 30.8 mmHg (35.0-45.0); BG PH 7.495 (7.350-7.450); BG PO2 72.1 mmHg (75.0-100.0); BG SAMPLE SITE LEFT RADIAL; BG TOTAL HEMOGLOBIN 11.5 g/dL (12.0-18.0); BG VENT MODE MASK - VENTI
[2021-04-29] MEDS: CEFTRIAXONE 1,000 MG in DEXTROSE 5% WATER 50 ML IV SCH (12:53)
[2021-04-29 17:15] LABS: PLATELET ESTIMATE NORMAL
[2021-04-29] MEDS: AMIODARONE HCL 200 MG TABLET PO SCH (18:14)
[2021-04-29] MEDS: ATORVASTATIN CALCIUM 40MG TABLET PO SCH (20:45)
[2021-04-30] VITALS (17 sets, daily range): BP systolic 120–158; BP diastolic 48–82
[2021-04-30] MEDS: AMIODARONE HCL 200 MG TABLET PO SCH ×2 (05:16→17:31)
[2021-04-30] MEDS: OXYCODONE HCL/ACETAMINOPHEN 5/325MG TABLET PO PRN ×2 (05:17→19:36)
[2021-04-30] MEDS: IPRATROPIUM/ALBUTEROL 0.5-3(2.5)MG/3ML NEB HHN SCH ×5 (05:47→21:23)
[2021-04-30] MEDS: INSULIN LISPRO 100 UNITS/ML SUBCUT SCH ×4 (06:08→20:41)
[2021-04-30] MEDS: BLOOD SUGAR DIAGNOSTIC STRIP TEST SCH ×4 (06:08→20:34)
[2021-04-30 07:27] LABS: HEMATOCRIT. 31.6 % (42.0-52.0); HEMOGLOBIN. 10.2 g/dL (14.0-18.0); MEAN CORPUSCULAR HEMOGLOBIN 27.1 pg (28.0-32.0); MEAN PLATELET VOLUME 9.5 fl (7.4-10.4); PLATELET 431 x1000/uL (130-400); RED BLOOD CELL COUNT 3.76 mill/uL (4.7-6.1); RED CELL DISTRIBUTION WIDTH 18.4 % (11.6-14.6)
[2021-04-30 08:07] LABS: CHLORIDE 109 mEq/L (98-107)
[2021-04-30] MEDS: BACITRACIN 15GM TUBE TOP SCH ×2 (09:00→17:32)
[2021-04-30] MEDS: PANTOPRAZOLE SODIUM 40 MG/VIAL IV SCH (09:05)
[2021-04-30] MEDS: METHYLPREDNISOLONE SOD SUCC 40 MG/ML VIAL IV SCH (09:05)
[2021-04-30] MEDS: METHYLPHENIDATE HCL 5MG TABLET PO SCH ×2 (09:05→17:31)
[2021-04-30] MEDS: GUAIFENESIN 600MG ER TABLET PO SCH ×2 (09:05→20:41)
[2021-04-30] MEDS: ASPIRIN 81MG TABLET PO SCH (09:05)
[2021-04-30] MEDS: FUROSEMIDE 100MG/10ML VIAL IVP SCH (09:05)
[2021-04-30] MEDS: CLOPIDOGREL 75MG TABLET PO SCH (09:05)
[2021-04-30] MEDS: DOCUSATE SODIUM 250MG CAPSULE PO SCH ×2 (09:05→17:30)
[2021-04-30] MEDS: MINERAL OIL 30ML BOTTLE PO SCH ×2 (09:05→17:30)
[2021-04-30] MEDS: FAMOTIDINE 20MG TABLET PO SCH ×2 (09:05→20:41)
[2021-04-30] MEDS: MULTIVITAMINS,THER W-MINERALS TABLET PO SCH (09:05)
[2021-04-30] MEDS: METOPROLOL TARTRATE 50MG TABLET PO SCH ×2 (09:06→20:41)
[2021-04-30 12:02] LABS: PLATELET ESTIMATE INCREASED
[2021-04-30] MEDS: CEFTRIAXONE 1,000 MG in DEXTROSE 5% WATER 50 ML IV SCH (14:11)
[2021-04-30] MEDS: ATORVASTATIN CALCIUM 40MG TABLET PO SCH (20:41)
[2021-05-01] VITALS (11 sets, daily range): BP systolic 109–154; BP diastolic 49–86
[2021-05-01] MEDS: OXYCODONE HCL/ACETAMINOPHEN 5/325MG TABLET PO PRN ×3 (00:59→17:59)
[2021-05-01] MEDS: IPRATROPIUM/ALBUTEROL 0.5-3(2.5)MG/3ML NEB HHN SCH ×5 (01:22→21:45)
[2021-05-01] MEDS: AMIODARONE HCL 200 MG TABLET PO SCH ×2 (05:52→17:43)
[2021-05-01] MEDS: BLOOD SUGAR DIAGNOSTIC STRIP TEST SCH ×4 (06:01→21:46)
[2021-05-01] MEDS: INSULIN LISPRO 100 UNITS/ML SUBCUT SCH ×4 (06:01→21:00)
[2021-05-01] MEDS: MULTIVITAMINS,THER W-MINERALS TABLET PO SCH (08:11)
[2021-05-01] MEDS: METOPROLOL TARTRATE 50MG TABLET PO SCH (08:11)
[2021-05-01] MEDS: CLOPIDOGREL 75MG TABLET PO SCH (08:11)
[2021-05-01] MEDS: METHYLPHENIDATE HCL 5MG TABLET PO SCH ×2 (08:11→17:43)
[2021-05-01] MEDS: DOCUSATE SODIUM 250MG CAPSULE PO SCH ×2 (08:11→17:43)
[2021-05-01] MEDS: ASPIRIN 81MG TABLET PO SCH (08:11)
[2021-05-01] MEDS: FUROSEMIDE 100MG/10ML VIAL IVP SCH (08:12)
[2021-05-01] MEDS: MINERAL OIL 30ML BOTTLE PO SCH ×2 (08:12→17:43)
[2021-05-01] MEDS: GUAIFENESIN 600MG ER TABLET PO SCH ×2 (08:12→21:56)
[2021-05-01] MEDS: FAMOTIDINE 20MG TABLET PO SCH ×2 (08:24→21:56)
[2021-05-01] MEDS: BACITRACIN 15GM TUBE TOP SCH ×2 (08:24→17:44)
[2021-05-01] MEDS ORDERED: METHYLPREDNISOLONE SOD SUCC 40 MG/ML VIAL IV SCH (09:00)
[2021-05-01 10:47] LABS: HEMATOCRIT. 35.7 % (42.0-52.0); HEMOGLOBIN. 11.5 g/dL (14.0-18.0); MEAN CORPUSCULAR HEMOGLOBIN 27.7 pg (28.0-32.0); MEAN CORPUSCULAR VOLUME 85.7 fL (80.0-94.0); MEAN PLATELET VOLUME 9.4 fl (7.4-10.4); PLATELET 602 x1000/uL (130-400); RED BLOOD CELL COUNT 4.17 mill/uL (4.7-6.1); RED CELL DISTRIBUTION WIDTH 18.6 % (11.6-14.6)
[2021-05-01 10:56] LABS: CHLORIDE 106 mEq/L (98-107)
[2021-05-01] MEDS ORDERED: MAGNESIUM 2 G PREMIX 50 ML IV SCH (11:00)
[2021-05-01 11:46] LABS: PLATELET ESTIMATE INCREASED
[2021-05-01] MEDS: CEFTRIAXONE 1,000 MG in DEXTROSE 5% WATER 50 ML IV SCH (13:57)
[2021-05-01] MEDS: ATORVASTATIN CALCIUM 40MG TABLET PO SCH (21:55)
[2021-05-01] MEDS: METOPROLOL TARTRATE 100MG TABLET PO SCH (21:57)
[2021-05-02] VITALS (17 sets, daily range): BP systolic 101–163; BP diastolic 43–88
[2021-05-02] MEDS: IPRATROPIUM/ALBUTEROL 0.5-3(2.5)MG/3ML NEB HHN SCH ×7 (01:39→21:50)
[2021-05-02] MEDS: OXYCODONE HCL/ACETAMINOPHEN 5/325MG TABLET PO PRN ×3 (02:42→16:39)
[2021-05-02] MEDS: BLOOD SUGAR DIAGNOSTIC STRIP TEST SCH ×4 (06:16→20:53)
[2021-05-02] MEDS: AMIODARONE HCL 200 MG TABLET PO SCH ×2 (06:24→17:39)
[2021-05-02] MEDS: INSULIN LISPRO 100 UNITS/ML SUBCUT SCH ×4 (07:20→20:53)
[2021-05-02] MEDS: FUROSEMIDE 100MG/10ML VIAL IVP SCH (08:43)
[2021-05-02] MEDS: CLOPIDOGREL 75MG TABLET PO SCH (08:43)
[2021-05-02] MEDS: MINERAL OIL 30ML BOTTLE PO SCH ×2 (08:43→16:37)
[2021-05-02] MEDS: FAMOTIDINE 20MG TABLET PO SCH ×2 (08:43→20:53)
[2021-05-02] MEDS: METHYLPHENIDATE HCL 5MG TABLET PO SCH ×2 (08:43→16:38)
[2021-05-02] MEDS: GUAIFENESIN 600MG ER TABLET PO SCH ×2 (08:44→20:53)
[2021-05-02] MEDS: DOCUSATE SODIUM 250MG CAPSULE PO SCH ×2 (08:44→16:45)
[2021-05-02] MEDS: MULTIVITAMINS,THER W-MINERALS TABLET PO SCH (08:44)
[2021-05-02] MEDS: ASPIRIN 81MG TABLET PO SCH (08:44)
[2021-05-02] MEDS: METOPROLOL TARTRATE 100MG TABLET PO SCH ×2 (08:47→20:53)
[2021-05-02] MEDS: BACITRACIN 15GM TUBE TOP SCH ×2 (08:48→17:25)
[2021-05-02] MEDS: LACTULOSE 20G/30ML UDC PO SCH ×3 (11:05→20:53)
[2021-05-02 11:06] LABS: BG CARBOXYHEMOGLOBIN 0.7 % (0.5-1.5); BG DEOXYHEMOGLOBIN 10.1 % (0.0-5.0); BG FRACTION INSPIRED OXYGEN 28; BG HCO3 ACT 25.1 mmol/L (22.0-26.0); BG OXYGEN SATURATION 89.8 % (92.0-98.5); BG OXYHEMOGLOBIN 89.2 % (94.0-97.0); BG PCO2 33.8 mmHg (35.0-45.0); BG PH 7.488 (7.350-7.450); BG PO2 57.1 mmHg (75.0-100.0); BG SAMPLE SITE RIGHT RADIAL; BG VENT MODE NASAL CANNULA
[2021-05-02] MEDS: CEFTRIAXONE 1,000 MG in DEXTROSE 5% WATER 50 ML IV SCH (15:35)
[2021-05-02] MEDS ORDERED: MORPHINE SULFATE 2 MG/ML CPJ (NOT FOR IM USE) IV PRN (16:30)
[2021-05-02] MEDS: ATORVASTATIN CALCIUM 40MG TABLET PO SCH (20:53)
[2021-05-03] VITALS (12 sets, daily range): BP systolic 104–155; BP diastolic 54–90
[2021-05-03] MEDS: BLOOD SUGAR DIAGNOSTIC STRIP TEST SCH ×4 (06:25→21:00)
[2021-05-03] MEDS: INSULIN LISPRO 100 UNITS/ML SUBCUT SCH ×4 (06:46→21:00)
[2021-05-03] MEDS: AMIODARONE HCL 200 MG TABLET PO SCH ×2 (06:46→17:49)
[2021-05-03] MEDS: IPRATROPIUM/ALBUTEROL 0.5-3(2.5)MG/3ML NEB HHN SCH ×4 (07:45→21:13)
[2021-05-03] MEDS: DOCUSATE SODIUM 250MG CAPSULE PO SCH ×3 (09:00→17:49)
[2021-05-03] MEDS: MINERAL OIL 30ML BOTTLE PO SCH ×3 (09:00→17:49)
[2021-05-03] MEDS: FAMOTIDINE 20MG TABLET PO SCH ×2 (09:24→21:22)
[2021-05-03] MEDS: MULTIVITAMINS,THER W-MINERALS TABLET PO SCH (09:24)
[2021-05-03] MEDS: METHYLPHENIDATE HCL 5MG TABLET PO SCH ×2 (09:24→17:49)
[2021-05-03] MEDS: ASPIRIN 81MG TABLET PO SCH (09:24)
[2021-05-03] MEDS: FUROSEMIDE 100MG/10ML VIAL IVP SCH (09:24)
[2021-05-03] MEDS: GUAIFENESIN 600MG ER TABLET PO SCH ×2 (09:24→21:21)
[2021-05-03] MEDS: CLOPIDOGREL 75MG TABLET PO SCH (09:24)
[2021-05-03] MEDS: METOPROLOL TARTRATE 100MG TABLET PO SCH ×2 (09:25→21:21)
[2021-05-03] MEDS: BACITRACIN 15GM TUBE TOP SCH ×2 (09:27→17:49)
[2021-05-03] MEDS: ATORVASTATIN CALCIUM 40MG TABLET PO SCH (21:21)
[2021-05-04] VITALS (11 sets, daily range): BP systolic 124–160; BP diastolic 57–80
[2021-05-04] MEDS: IPRATROPIUM/ALBUTEROL 0.5-3(2.5)MG/3ML NEB HHN SCH ×6 (01:21→21:06)
[2021-05-04] MEDS: BLOOD SUGAR DIAGNOSTIC STRIP TEST SCH ×4 (06:18→20:25)
[2021-05-04] MEDS: AMIODARONE HCL 200 MG TABLET PO SCH ×2 (06:18→17:12)
[2021-05-04] MEDS: INSULIN LISPRO 100 UNITS/ML SUBCUT SCH ×4 (06:47→20:26)
[2021-05-04 07:50] LABS: HEMATOCRIT. 35.8 % (42.0-52.0); HEMOGLOBIN. 11.4 g/dL (14.0-18.0); MEAN CORPUSCULAR HEMOGLOBIN 27.8 pg (28.0-32.0); MEAN CORPUSCULAR VOLUME 87.6 fL (80.0-94.0); MEAN PLATELET VOLUME 9.3 fl (7.4-10.4); PLATELET 791 x1000/uL (130-400); RED BLOOD CELL COUNT 4.08 mill/uL (4.7-6.1); RED CELL DISTRIBUTION WIDTH 18.7 % (11.6-14.6)
[2021-05-04 08:09] LABS: CHLORIDE 109 mEq/L (98-107)
[2021-05-04] MEDS: FUROSEMIDE 100MG/10ML VIAL IVP SCH (08:09)
[2021-05-04] MEDS: ASPIRIN 81MG TABLET PO SCH (08:09)
[2021-05-04] MEDS: MINERAL OIL 30ML BOTTLE PO SCH ×2 (08:09→16:07)
[2021-05-04] MEDS: MULTIVITAMINS,THER W-MINERALS TABLET PO SCH (08:09)
[2021-05-04] MEDS: METHYLPHENIDATE HCL 5MG TABLET PO SCH ×2 (08:10→16:08)
[2021-05-04] MEDS: CLOPIDOGREL 75MG TABLET PO SCH (08:10)
[2021-05-04] MEDS: FAMOTIDINE 20MG TABLET PO SCH ×2 (08:10→20:25)
[2021-05-04] MEDS: BACITRACIN 15GM TUBE TOP SCH ×2 (08:10→16:08)
[2021-05-04] MEDS: DOCUSATE SODIUM 250MG CAPSULE PO SCH ×2 (08:10→16:07)
[2021-05-04] MEDS: GUAIFENESIN 600MG ER TABLET PO SCH ×2 (08:10→20:24)
[2021-05-04] MEDS: METOPROLOL TARTRATE 100MG TABLET PO SCH ×2 (08:10→20:25)
[2021-05-04] MEDS: OXYCODONE HCL/ACETAMINOPHEN 5/325MG TABLET PO PRN ×2 (11:39→21:18)
[2021-05-04 14:18] LABS: PLATELET ESTIMATE MARKEDLY INCREASED
[2021-05-04] MEDS: METRONIDAZOLE 500MG TABLET PO SCH ×2 (16:08→21:06)
[2021-05-04] MEDS: CEFEPIME 2,000 MG in DEXT 5% WATER 100 ML IV SCH (17:12)
[2021-05-04] MEDS: ATORVASTATIN CALCIUM 40MG TABLET PO SCH (20:24)
[2021-05-04] MEDS: NITROGLYCERIN 0.4MG TABLET SL SL PRN ×2 (21:27→21:34)
[2021-05-04] MEDS ORDERED: NALOXONE HCL 0.4 MG/ML 1ML VIAL IV PRN (23:45)
[2021-05-05] VITALS (10 sets, daily range): BP systolic 115–163; BP diastolic 50–75
[2021-05-05] MEDS: IPRATROPIUM/ALBUTEROL 0.5-3(2.5)MG/3ML NEB HHN SCH ×5 (00:53→19:52)
[2021-05-05] MEDS: MORPHINE SULFATE 2 MG/ML CPJ (NOT FOR IM USE) IV PRN ×4 (02:26→23:06)
[2021-05-05] MEDS: AMIODARONE HCL 200 MG TABLET PO SCH ×2 (06:06→17:00)
[2021-05-05] MEDS: CEFEPIME 2,000 MG in DEXT 5% WATER 100 ML IV SCH ×2 (06:06→20:58)
[2021-05-05] MEDS: METRONIDAZOLE 500MG TABLET PO SCH ×3 (06:06→21:36)
[2021-05-05] MEDS: OXYCODONE HCL/ACETAMINOPHEN 5/325MG TABLET PO PRN (06:07)
[2021-05-05] MEDS: BLOOD SUGAR DIAGNOSTIC STRIP TEST SCH ×4 (06:07→21:34)
[2021-05-05] MEDS: INSULIN LISPRO 100 UNITS/ML SUBCUT SCH ×4 (06:28→21:00)
[2021-05-05 07:17] LABS: HEMATOCRIT. 33.3 % (42.0-52.0); HEMOGLOBIN. 10.5 g/dL (14.0-18.0); MEAN CORPUSCULAR HEMOGLOBIN 27.5 pg (28.0-32.0); MEAN PLATELET VOLUME 8.9 fl (7.4-10.4); PLATELET 784 x1000/uL (130-400); RED BLOOD CELL COUNT 3.83 mill/uL (4.7-6.1); RED CELL DISTRIBUTION WIDTH 18.7 % (11.6-14.6)
[2021-05-05 07:31] LABS: CHLORIDE 111 mEq/L (98-107)
[2021-05-05] MEDS: GUAIFENESIN 600MG ER TABLET PO SCH ×2 (08:30→21:33)
[2021-05-05] MEDS: FAMOTIDINE 20MG TABLET PO SCH ×2 (08:30→21:34)
[2021-05-05] MEDS: METOPROLOL TARTRATE 100MG TABLET PO SCH ×2 (08:30→21:34)
[2021-05-05] MEDS: ASPIRIN 81MG TABLET PO SCH (08:30)
[2021-05-05] MEDS: MULTIVITAMINS,THER W-MINERALS TABLET PO SCH (08:30)
[2021-05-05] MEDS: CLOPIDOGREL 75MG TABLET PO SCH (08:30)
[2021-05-05] MEDS: MINERAL OIL 30ML BOTTLE PO SCH ×2 (08:30→17:00)
[2021-05-05] MEDS: DOCUSATE SODIUM 250MG CAPSULE PO SCH ×2 (08:30→17:00)
[2021-05-05] MEDS: METHYLPHENIDATE HCL 5MG TABLET PO SCH ×2 (08:30→17:00)
[2021-05-05] MEDS: BACITRACIN 15GM TUBE TOP SCH ×2 (08:30→17:00)
[2021-05-05] MEDS: FUROSEMIDE 100MG/10ML VIAL IVP SCH (08:30)
[2021-05-05] MEDS: MAGNESIUM OXIDE 400MG TABLET PO SCH (09:17)
[2021-05-05] MEDS ORDERED: MAGNESIUM 4 G PREMIX 100 ML IV NR (10:00)
[2021-05-05] MEDS ORDERED: LORAZEPAM 0.5MG TABLET PO SCH (10:30)
[2021-05-05] MEDS: GUAIFENESIN-DM 200MG-20MG/10ML UDC PO PRN (10:45)
[2021-05-05 13:17] LABS: PLATELET ESTIMATE INCREASED
[2021-05-05] MEDS ORDERED: CEFTRIAXONE 1 G PREMIX 50 ML IV SCH (14:15)
[2021-05-05] MEDS ORDERED: CEFTRIAXONE 1,000 MG in DEXTROSE 5% WATER 50 ML IV SCH (15:30)
[2021-05-05] MEDS ORDERED: VANCOMYCIN 1,500 MG in DEXT 5% WATER 250 ML IV NR (16:00)
[2021-05-05] MEDS ORDERED: OXYCODONE HCL/ACETAMINOPHEN 5/325MG TABLET PO PRN (19:45)
[2021-05-05] MEDS: ATORVASTATIN CALCIUM 40MG TABLET PO SCH (21:34)
[2021-05-06] VITALS (10 sets, daily range): BP systolic 116–162; BP diastolic 43–67
[2021-05-06] MEDS: IPRATROPIUM/ALBUTEROL 0.5-3(2.5)MG/3ML NEB HHN SCH ×5 (00:01→15:28)
[2021-05-06 05:31] LABS: CLARITY URINE CLOUDY (CLEAR); COLOR URINE DARK YELLOW (YELLOW); KETONES URINE TRACE (NEGATIVE); LEUKOCYTE ESTERASE URINE 1+ (NEGATIVE); NITRITE URINE NEGATIVE (NEGATIVE); OCCULT BLOOD URINE NEGATIVE (NEGATIVE); PROTEIN URINE TRACE (NEGATIVE); SPECIFIC GRAVITY URINE 1.027 (1.005-1.030); UROBILINOGEN URINE 0.2 E.U./dL (0.2-1.0)
[2021-05-06] MEDS: METRONIDAZOLE 500MG TABLET PO SCH ×2 (06:14→14:35)
[2021-05-06] MEDS: AMIODARONE HCL 200 MG TABLET PO SCH ×2 (06:14→15:57)
[2021-05-06] MEDS: BLOOD SUGAR DIAGNOSTIC STRIP TEST SCH ×3 (06:14→15:58)
[2021-05-06] MEDS: MORPHINE SULFATE 2 MG/ML CPJ (NOT FOR IM USE) IV PRN (06:27)
[2021-05-06] MEDS: INSULIN LISPRO 100 UNITS/ML SUBCUT SCH ×3 (06:33→16:08)
[2021-05-06 06:53] LABS: HEMATOCRIT. 32.9 % (42.0-52.0); HEMOGLOBIN. 10.5 g/dL (14.0-18.0); MEAN CORPUSCULAR HEMOGLOBIN 27.6 pg (28.0-32.0); MEAN CORPUSCULAR VOLUME 86.8 fL (80.0-94.0); MEAN PLATELET VOLUME 8.7 fl (7.4-10.4); PLATELET 751 x1000/uL (130-400); RED BLOOD CELL COUNT 3.79 mill/uL (4.7-6.1); RED CELL DISTRIBUTION WIDTH 18.8 % (11.6-14.6)
[2021-05-06] MEDS: CEFEPIME 2,000 MG in DEXT 5% WATER 100 ML IV SCH ×2 (06:54→15:56)
[2021-05-06 06:58] LABS: CHLORIDE 109 mEq/L (98-107)
[2021-05-06] MEDS: BACITRACIN 15GM TUBE TOP SCH ×2 (08:48→15:58)
[2021-05-06] MEDS: MINERAL OIL 30ML BOTTLE PO SCH ×2 (08:48→15:57)
[2021-05-06] MEDS: ASPIRIN 81MG TABLET PO SCH (08:48)
[2021-05-06] MEDS: MAGNESIUM OXIDE 400MG TABLET PO SCH (08:48)
[2021-05-06] MEDS: FUROSEMIDE 100MG/10ML VIAL IVP SCH (08:48)
[2021-05-06] MEDS: DOCUSATE SODIUM 250MG CAPSULE PO SCH ×2 (08:49→15:57)
[2021-05-06] MEDS: MULTIVITAMINS,THER W-MINERALS TABLET PO SCH (08:50)
[2021-05-06] MEDS: METHYLPHENIDATE HCL 5MG TABLET PO SCH ×2 (08:50→15:57)
[2021-05-06] MEDS: CLOPIDOGREL 75MG TABLET PO SCH (08:50)
[2021-05-06] MEDS: FAMOTIDINE 20MG TABLET PO SCH (08:50)
[2021-05-06] MEDS: GUAIFENESIN 600MG ER TABLET PO SCH (08:53)
[2021-05-06] MEDS: METOPROLOL TARTRATE 100MG TABLET PO SCH (08:57)
[2021-05-06] MEDS ORDERED: KETOROLAC 15MG/ML VIAL IV PRN (09:45)
[2021-05-06] MEDS: GUAIFENESIN-DM 200MG-20MG/10ML UDC PO PRN (11:38)
[2021-05-06] MEDS ORDERED: SULFAMETHOXAZOLE/TRIMETHOPRIM 800/160MG TABLET PO SCH (14:00)
[2021-05-06 16:51] LABS: PLATELET ESTIMATE INCREASED
== END 2021-05-06 18:29 | DRG 166 ==
LOC: CVICU 18:56 → 3WST 04-27 15:34
PROVIDERS: ADMIT Internal Medicine; ATTEND Internal Medicine
PROC: 02100Z9 Bypass Coronary Artery, One Artery from Left Internal Mammary, Open Approach (ICD-10-PCS; 2021-04-21)
PROC: 06BQ4ZZ Excision of Left Saphenous Vein, Percutaneous Endoscopic Approach (ICD-10-PCS; 2021-04-21)
PROC: 021209W Bypass Coronary Artery, Three Arteries from Aorta with Autologous Venous Tissue, Open Approach (ICD-10-PCS; 2021-04-21)
PROC: 30233N1 Transfusion of Nonautologous Red Blood Cells into Peripheral Vein, Percutaneous Approach (ICD-10-PCS; principal; 2021-04-23)
PROC: 5A09457 Assistance with Respiratory Ventilation, 24-96 Consecutive Hours, Continuous Positive Airway Pressure (ICD-10-PCS; 2021-04-23)
PROC: 02HV33Z Insertion of Infusion Device into Superior Vena Cava, Percutaneous Approach (ICD-10-PCS; 2021-04-25)
PROC: B548ZZA Ultrasonography of Superior Vena Cava, Guidance (ICD-10-PCS; 2021-04-25)
DX: I25.10 Atherosclerotic heart disease of native coronary artery without angina pectoris (principal); A41.59 Other Gram-negative sepsis; J96.00 Acute respiratory failure, unspecified whether with hypoxia or hypercapnia; I21.3 ST elevation (STEMI) myocardial infarction of unspecified site; E43 Unspecified severe protein-calorie malnutrition; J15.6 Pneumonia due to other Gram-negative bacteria; E87.8 Other disorders of electrolyte and fluid balance, not elsewhere classified; E11.9 Type 2 diabetes mellitus without complications; D64.9 Anemia, unspecified; J44.0 Chronic obstructive pulmonary disease with (acute) lower respiratory infection; J44.1 Chronic obstructive pulmonary disease with (acute) exacerbation; E78.5 Hyperlipidemia, unspecified; E87.70 Fluid overload, unspecified; I10 Essential (primary) hypertension; Z20.822 Contact with and (suspected) exposure to COVID-19; R26.9 Unspecified abnormalities of gait and mobility; G62.9 Polyneuropathy, unspecified; I48.0 Paroxysmal atrial fibrillation; I34.0 Nonrheumatic mitral (valve) insufficiency; I25.2 Old myocardial infarction; Z79.899 Other long term (current) drug therapy; Z87.891 Personal history of nicotine dependence; Z68.21 Body mass index [BMI] 21.0-21.9, adult
CPT/HCPCS: 36415; 36600; 71045; 71250; 76937; 80048; 80053; 80061; 81003; 82375; 82805; 82962; 83036; 83735; 83880; 84100; 84132; 84145; 84484; 85014; 85018; 85025; 85049; 85347; 85384; 86850; 86900; 86920; 87070; 87077; 87186; 87426; 92610; 93005; 93306; 93970; 94640; 94660; 94667; 97110; 97116; 97162; 97166; 97530; C1725; C1729; C1751; C1758; C1769; C9113; J0282; J0690; J0692; J0696; J0885; J1100; J1160; J1265; J1644; J1815; J1885; J1940; J2270; J2405; J2440; J2543; J2710; J2720; J2920; J3010; J3370; J3475; J3480; J3490; J7040; J7050; J7060; L3908; P9016; P9047; Q9957; A4315